=== PATIENT | male | born 1945 | race Caucasian/White ===

== ENCOUNTER 2017-02-11 07:22 | Inpatient (IN) | payer MEDICARE ==
[~2017-02-11] VITALS: Ht 180.3 cm; Wt 116.1 kg
[2017-02-11] MEDS ORDERED: ALBUTEROL/IPRATROPIUM 2.5MG/0.5MG, 3 ML ONE (08:18)
[2017-02-11 08:27] LABS: HEMOGLOBIN 10.3 g/dL (13.7-18.0); WHITE BLOOD COUNT 13.3 x10^3/uL (3.4-10)
[2017-02-11] MEDS ORDERED: CEFTRIAXONE PMX 1GM/50ML 50 ML IV ONE (08:30)
[2017-02-11] MEDS ORDERED: ALBUTEROL/IPRATROPIUM 2.5MG/0.5MG, 3 ML NPPB SCH (08:30)
[2017-02-11] MEDS ORDERED: AZITHROMYCIN 500 MG in SODIUM CHLORIDE 0.9% 250 ML IV ONE (08:30)
[2017-02-11 08:35] LABS: ASPARTATE AMINO TRANSFERASE 23 U/L (15-37); BLOOD UREA NITROGEN 81 mg/dL (7-18)
[2017-02-11] MEDS ORDERED: AMIO200T42 PO (08:36)
[2017-02-11] MEDS ORDERED: DULO30CA2 PO (08:36)
[2017-02-11] MEDS ORDERED: SIMV40TA3 PO (08:36)
[2017-02-11] MEDS ORDERED: LISI-170 PO (08:36)
[2017-02-11] MEDS ORDERED: OMEP-110 PO (08:36)
[2017-02-11] MEDS ORDERED: METF500T4 PO (08:36)
[2017-02-11] MEDS ORDERED: INSU100C SQ-INSULIN (08:36)
[2017-02-11] MEDS ORDERED: INSU100V8 SQ (08:36)
[2017-02-11] MEDS ORDERED: FURO-93 PO (08:36)
[2017-02-11] MEDS ORDERED: LIOT25TA10 PO (08:36)
[2017-02-11] MEDS ORDERED: HYDR-3237 PO (08:36)
[2017-02-11 08:42] LABS: IS PT STATUS REG ER OR PRE ER? YES
[2017-02-11] MEDS ORDERED: CEFTRIAXONE PMX 1GM/50ML 50 ML ONE (08:55)
[2017-02-11] MEDS ORDERED: SODIUM CHLORIDE 0.9%, 500ML IVBOLUS ONE (09:00)
[2017-02-11] MEDS ORDERED: ONDANSETRON ODT 4 MG PO PRN (10:30)
[2017-02-11] MEDS ORDERED: GUAIFENESIN/DM 200-20MG, 10ML UDC PO PRN (10:30)
[2017-02-11] MEDS ORDERED: morphine SULFATE 10 MG/ML, 1ML IVPush PRN (10:30)
[2017-02-11] MEDS ORDERED: LABETALOL 5MG/ML, 20ML IVPush PRN (10:30)
[2017-02-11] MEDS ORDERED: HYDROcodone/APAP 5/325 TABLET PO PRN (10:30)
[2017-02-11 10:54] VITALS: BP 104/67
[2017-02-11] MEDS ORDERED: PHARMACY MAY ADJ FOR RENAL FX MC PRN ×2 (11:00→13:00)
[2017-02-11] MEDS ORDERED: FUROSEMIDE 40 MG/4 ML IV SCH (11:00)
[2017-02-11] MEDS ORDERED: SODIUM POLY SULFONATE UDC 15 GM/60 ML PO ONE (11:00)
[2017-02-11] MEDS ORDERED: SODIUM CHLORIDE 0.9% 1,000 ML IV ONE (11:00)
[2017-02-11 12:06] LABS: IS PT STATUS REG ER OR PRE ER? NO
[2017-02-11 13:42] VITALS: BP 104/67
[2017-02-11 13:59] VITALS: BP 127/71
[2017-02-11] MEDS ORDERED: ALBUTEROL/IPRATROPIUM 2.5MG/0.5MG, 3 ML NPPB PRN (14:30)
[2017-02-11] MEDS: AMPICILLIN/SULBACTAM 3 GM in SODIUM CHLORIDE 0.9% 100 ML IV SCH ×2 (14:34→22:21)
[2017-02-11 18:23] LABS: IS PT STATUS REG ER OR PRE ER? NO
[2017-02-11] MEDS: CARVEDILOL 3.125 MG TABLET PO SCH (18:26)
[2017-02-11 18:39] LABS: RAPID INFLUENZA A Negative (Negative); RAPID INFLUENZA B Negative (Negative)
[2017-02-11 19:37] VITALS: BP 101/62
[2017-02-11] MEDS: AMIODARONE 200 MG TABLET PO SCH (20:34)
[2017-02-11] MEDS: DOXYCYCLINE 100MG TABLET PO SCH (20:34)
[2017-02-11] MEDS: ATORVASTATIN 20 MG TABLET PO SCH (20:34)
[2017-02-12 01:48] VITALS: BP 92/56
[2017-02-12] MEDS: AMPICILLIN/SULBACTAM 3 GM in SODIUM CHLORIDE 0.9% 100 ML IV SCH ×2 (04:02→16:00)
[2017-02-12 04:45] VITALS: BP 89/52
[2017-02-12] MEDS ORDERED: GLUCAGON 1 MG IM PRN (05:00)
[2017-02-12] MEDS ORDERED: SODIUM CHLORIDE 0.9% 1,000ML IVBOLUS ONE (05:00)
[2017-02-12] MEDS ORDERED: DEXTROSE 4 GM TAB.CHEW PO PRN (05:00)
[2017-02-12] MEDS ORDERED: DEXTROSE 50%, 50ML SYRINGE IVPush PRN (05:00)
[2017-02-12] MEDS ORDERED: CARVEDILOL 6.25 MG TABLET ONE (05:50)
[2017-02-12] MEDS ORDERED: LEVOTHYROXINE 50 MCG TABLET ONE (05:50)
[2017-02-12] MEDS: LEVOTHYROXINE 100 MCG TABLET PO SCH (05:55)
[2017-02-12] MEDS: CARVEDILOL 3.125 MG TABLET PO SCH ×2 (05:55→17:52)
[2017-02-12] MEDS: ASPIRIN 81 MG TABLET EC PO SCH (05:57)
[2017-02-12 06:13] VITALS: BP 112/66
[2017-02-12] MEDS ORDERED: INSULIN ASPART 100 UNITS/ML, PEN SQ-INSULIN SCH (07:00)
[2017-02-12] MEDS: INSULIN ASPART 100 UNITS/ML, PEN SQ-INSULIN SCH ×4 (07:00→20:54)
[2017-02-12 07:35] LABS: HEMATOCRIT 28.5 % (39.2-51.8); HEMOGLOBIN 9.5 g/dL (13.7-18.0); WHITE BLOOD COUNT 8.5 x10^3/uL (3.4-10)
[2017-02-12 07:40] LABS: BLOOD UREA NITROGEN 73 mg/dL (7-18)
[2017-02-12 07:43] LABS: ASPARTATE AMINO TRANSFERASE 18 U/L (15-37)
[2017-02-12] MEDS: AMIODARONE 200 MG TABLET PO SCH ×2 (08:27→20:41)
[2017-02-12] MEDS: DOXYCYCLINE 100MG TABLET PO SCH ×2 (08:27→20:41)
[2017-02-12] MEDS: DULOXETINE 30 MG CAPSULE.DR PO SCH (08:27)
[2017-02-12] MEDS: CHOLECALCIFEROL 1,000 UNIT TABLET PO SCH (08:27)
[2017-02-12] MEDS ORDERED: SODIUM POLYSTYRENE SULFONATE ORAL SUSP PO ONE (08:30)
[2017-02-12] MEDS: SODIUM CHLORIDE FLUSH 10ML SYR IVF SCH ×2 (08:33→20:41)
[2017-02-12] MEDS: HEPARIN 5,000 UNITS/ML, 1ML SQ SCH ×2 (12:47→20:41)
[2017-02-12 12:48] VITALS: BP 103/64
[2017-02-12 15:01] LABS: BLOOD UREA NITROGEN 74 mg/dL (7-18)
[2017-02-12 18:29] VITALS: BP 147/80
[2017-02-12] MEDS: ATORVASTATIN 20 MG TABLET PO SCH (20:41)
[2017-02-13 04:34] VITALS: BP 107/64
[2017-02-13] MEDS: AMPICILLIN/SULBACTAM 3 GM in SODIUM CHLORIDE 0.9% 100 ML IV SCH ×2 (05:08→17:39)
[2017-02-13] MEDS: HEPARIN 5,000 UNITS/ML, 1ML SQ SCH ×3 (05:09→21:57)
[2017-02-13] MEDS: CARVEDILOL 3.125 MG TABLET PO SCH ×2 (05:09→18:17)
[2017-02-13] MEDS: ASPIRIN 81 MG TABLET EC PO SCH (05:09)
[2017-02-13] MEDS: LEVOTHYROXINE 100 MCG TABLET PO SCH (05:09)
[2017-02-13 05:13] VITALS: BP 110/65
[2017-02-13 05:56] LABS: HEMATOCRIT 29.3 % (39.2-51.8); HEMOGLOBIN 9.9 g/dL (13.7-18.0); WHITE BLOOD COUNT 8.8 x10^3/uL (3.4-10)
[2017-02-13 06:05] LABS: ASPARTATE AMINO TRANSFERASE 18 U/L (15-37); BLOOD UREA NITROGEN 66 mg/dL (7-18)
[2017-02-13] MEDS: INSULIN ASPART 100 UNITS/ML, PEN SQ-INSULIN SCH ×4 (07:00→21:00)
[2017-02-13 08:25] VITALS: BP 96/57
[2017-02-13] MEDS: AMIODARONE 200 MG TABLET PO SCH ×3 (09:00→21:58)
[2017-02-13] MEDS: SODIUM CHLORIDE FLUSH 10ML SYR IVF SCH ×2 (09:00→21:57)
[2017-02-13] MEDS: CHOLECALCIFEROL 1,000 UNIT TABLET PO SCH (09:25)
[2017-02-13] MEDS: DOXYCYCLINE 100MG TABLET PO SCH ×2 (09:25→21:58)
[2017-02-13] MEDS: DULOXETINE 30 MG CAPSULE.DR PO SCH (09:25)
[2017-02-13 15:25] VITALS: BP 101/66
[2017-02-13 19:36] VITALS: BP 107/62
[2017-02-13] MEDS: ATORVASTATIN 20 MG TABLET PO SCH (21:57)
[2017-02-14 01:35] VITALS: BP 114/67
[2017-02-14] MEDS: AMPICILLIN/SULBACTAM 3 GM in SODIUM CHLORIDE 0.9% 100 ML IV SCH (04:44)
[2017-02-14] MEDS: LEVOTHYROXINE 100 MCG TABLET PO SCH (04:45)
[2017-02-14] MEDS: HEPARIN 5,000 UNITS/ML, 1ML SQ SCH ×2 (04:45→11:55)
[2017-02-14] MEDS: ASPIRIN 81 MG TABLET EC PO SCH (04:45)
[2017-02-14] MEDS: CARVEDILOL 3.125 MG TABLET PO SCH ×2 (04:45→18:18)
[2017-02-14 05:07] LABS: HEMATOCRIT 27.3 % (39.2-51.8); HEMOGLOBIN 9.1 g/dL (13.7-18.0); WHITE BLOOD COUNT 8.1 x10^3/uL (3.4-10)
[2017-02-14 05:15] LABS: BLOOD UREA NITROGEN 53 mg/dL (7-18)
[2017-02-14 05:51] LABS: DIFF TOTAL CELLS COUNTED 100 CELL DIFF
[2017-02-14 05:53] LABS: VERIFY COUNTS? YES
[2017-02-14 05:54] LABS: ANISOCYTOSIS 1+; POLYCHROMASIA 1+
[2017-02-14] MEDS: INSULIN ASPART 100 UNITS/ML, PEN SQ-INSULIN SCH ×3 (07:00→16:00)
[2017-02-14 07:10] VITALS: BP 114/65
[2017-02-14] MEDS ORDERED: AMOXICILLIN/CLAV 875-125MG TABLET PO SCH (09:00)
[2017-02-14] MEDS: SODIUM CHLORIDE FLUSH 10ML SYR IVF SCH (09:00)
[2017-02-14] MEDS: DULOXETINE 30 MG CAPSULE.DR PO SCH (10:12)
[2017-02-14] MEDS: DOXYCYCLINE 100MG TABLET PO SCH (10:12)
[2017-02-14] MEDS: CHOLECALCIFEROL 1,000 UNIT TABLET PO SCH (10:12)
[2017-02-14] MEDS: AMIODARONE 200 MG TABLET PO SCH (10:12)
[2017-02-14] MEDS ORDERED: AMOX1TAB12 PO (12:06)
[2017-02-14] MEDS ORDERED: ASPI-621 PO (12:06)
[2017-02-14] MEDS ORDERED: DOXY100T PO (12:06)
[2017-02-14] MEDS ORDERED: CHOL10003 PO (12:06)
[2017-02-14] MEDS ORDERED: GUAI400T66 PO (12:06)
[2017-02-14] MEDS ORDERED: CARV3.1212 PO (12:06)
[2017-02-14] MEDS ORDERED: LEVO100T PO (12:06)
[2017-02-14] MEDS ORDERED: ATOR20TA9 PO (12:06)
[2017-02-14 13:10] VITALS: BP 113/65
[2017-02-14] MEDS: FLU VACC QS2017-18 (36MOS+) UP/PF 0.5 ML IM-VACC ONE ×2 (14:30→15:13)
[2017-02-14] MEDS ORDERED: PNEUMOCOCCAL 23 VACCINE IM-VACC ONE (14:30)
[2017-02-14] MEDS ORDERED: DEXTROSE 4 GM TAB.CHEW PO PRN ×3 (20:00→20:30)
[2017-02-14] MEDS ORDERED: LABETALOL 5MG/ML, 20ML IVPush PRN ×3 (20:00→20:30)
[2017-02-14] MEDS ORDERED: DEXTROSE 50%, 50ML SYRINGE IVPush PRN ×2 (20:00→20:30)
[2017-02-14] MEDS ORDERED: GLUCAGON 1 MG IM PRN ×2 (20:00→20:30)
[2017-02-14] MEDS ORDERED: ALBUTEROL/IPRATROPIUM 2.5MG/0.5MG, 3 ML NPPB PRN ×2 (20:00→20:30)
[2017-02-14] MEDS ORDERED: PHARMACY MAY ADJ FOR RENAL FX MC PRN ×2 (20:00→20:30)
[2017-02-14] MEDS ORDERED: ONDANSETRON ODT 4 MG PO PRN ×3 (20:00→20:30)
[2017-02-14] MEDS ORDERED: SODIUM CHLORIDE FLUSH 10ML SYR IVF SCH ×2 (21:00)
== END 2017-02-14 20:45 | disposition home health service (06) | DRG 682 ==
LOC: ED 08:52 → EDIP 08:53 → ED 09:22 → 4WST 10:35
PROVIDERS: ADMIT Internal Medicine; ATTEND Internal Medicine
PROC: 3E0234Z Introduction of Serum, Toxoid and Vaccine into Muscle, Percutaneous Approach (ICD-10-PCS; principal; 2017-02-14)
DX: N17.9 Acute kidney failure, unspecified (principal); J96.21 Acute and chronic respiratory failure with hypoxia; E43 Unspecified severe protein-calorie malnutrition; J69.0 Pneumonitis due to inhalation of food and vomit; I95.9 Hypotension, unspecified; I13.0 Hypertensive heart and chronic kidney disease with heart failure and stage 1 through stage 4 chronic kidney disease, or unspecified chronic kidney disease; E11.22 Type 2 diabetes mellitus with diabetic chronic kidney disease; E87.1 Hypo-osmolality and hyponatremia; I48.91 Unspecified atrial fibrillation; I50.42 Chronic combined systolic (congestive) and diastolic (congestive) heart failure; J44.0 Chronic obstructive pulmonary disease with (acute) lower respiratory infection; J44.1 Chronic obstructive pulmonary disease with (acute) exacerbation; E11.65 Type 2 diabetes mellitus with hyperglycemia; N18.4 Chronic kidney disease, stage 4 (severe); R13.10 Dysphagia, unspecified; F17.200 Nicotine dependence, unspecified, uncomplicated; E03.4 Atrophy of thyroid (acquired); G89.29 Other chronic pain; I71.2 Thoracic aortic aneurysm, without rupture; K21.9 Gastro-esophageal reflux disease without esophagitis; E87.5 Hyperkalemia; I25.10 Atherosclerotic heart disease of native coronary artery without angina pectoris; Z99.81 Dependence on supplemental oxygen; Z68.35 Body mass index [BMI] 35.0-35.9, adult; Z88.1 Allergy status to other antibiotic agents; Z88.8 Allergy status to other drugs, medicaments and biological substances; Z87.01 Personal history of pneumonia (recurrent); Z91.14 Patient's other noncompliance with medication regimen; Z95.2 Presence of prosthetic heart valve; Z23 Encounter for immunization; Z88.6 Allergy status to analgesic agent; Z79.899 Other long term (current) drug therapy
CPT/HCPCS: 36415; 71010; 76770; 80048; 80053; 81003; 82962; 83036; 83605; 83880; 84145; 84439; 84443; 84484; 85025; 85610; 85730; 87040; 87070; 87205; 87400; 90686; 90732; 93005; 93306; 93922; 93970; 94640; 96365; J0295; J0456; J0696; J1644; J1815; J1940; J7620; J7030; J7050